=== PATIENT | female | born 1990 | race Caucasian/White ===

== ENCOUNTER → 2018-02-04 16:46 | Outpatient (CLI) | payer OTHER, SELFPAY ==
[2018-02-05 16:12] LABS: Strep Grp B PCR POS for Grp B Strep
== END ==
PROVIDERS: Visit Provider Specialist
DX: Z34.83 Encounter for supervision of other normal pregnancy, third trimester (principal); Z3A.36 36 weeks gestation of pregnancy
CPT/HCPCS: 87653

== ENCOUNTER 2018-03-05 08:03 | Inpatient (IN) | payer OTHER, SELFPAY ==
--- NOTE | 2018-03-05 10:11 | PM.OBHP.1 ---
OB HPI History of Present Illness Chief complaint: EVALUATION OF Narrative: Viv Martin is a 27 year old female who is a G2 para 1 her LMP was 06/05/2017 with an estimated due date of 03/23/2016. Initial ultrasound showed a due date of 03/03/2018. Final due date is 03/03/2018. Patient was evaluated in the office this week. She was found to be 4 cm dilated. Intact membranes. Patient presented to the Center this morning with contractions consistent. Since early this morning no leakage of fluid. On evaluation number Center she had regular contractions moderate intensity and reactive heart tones. Her cervix was 4 cm and she was sent out to walk. She returned 1 hr later with increasing contractions and further cervical change. She was admitted to the Center at that point for eminent delivery. care provided by Dr. Bautista. problem said GBS positive status. No allergies. Medications during included vitamins. Patient's past history includes headaches. Past surgical history no reported surgical history. Past allergies patient denies penicillin allergy. vitamins blood type A positive antibody screen negative hematocrit 39.3 VDRL nonreactive hepatitis-B surface antigen negative GC chlamydia negative rubella immune. Pap test within normal limits varicella immune. Glucose screen 113 ultrasound intrauterine consistent with dates. [facility] Medical History No pertinent past medical history (Inactive ~08/17/17) Surgical History History of tooth extraction (Resolved) Anesthesia (Inactive) Meds Home Medications Medication Instructions Recorded Confirmed Type fhshjapgaa-pbyhhtucfalga-ahjq 1 tab PO Q4HP PRN #30 tab 11/01/17 Rx hydrocodone-acetaminophen [[place]] 1 - 2 tab PO Q6HP PRN #20 tab 11/01/17 Rx Exam Narrative Exam Narrative: . General: Alert no apparent distress. Affect is appropriate. [place] it is uncomfortable. HEENT: Neck is supple without lymphadenopathy pupils equal round and reactive. Cardio: S1-S2 regular rate and rhythm. Respiratory: Lungs clear to auscultation. Abdomen: Gravid. Extremities: Normal deep tendon reflexes trace edema. [place]: [place]illa every 5-7 minutes irregularly heart tones: heart tones 130s to 140s category 1 tracing Assessment and Plan Plan: Plan: 27-year-old female G2 para 1 at 40 weeks gestational age in early active labor. Dilated at 4 cm on initial presentation to Labor and delivery now 5 cm. Contractions are mild to moderate. Intact membranes she GBS status is positive. Will admit her to the labor and delivery floor. Will start an IV give her penicillin per protocol. Begin with vitals per protocol. Patient would like epidural anesthesia. Will proceed with that. Had discussed with her about amniotomy. She would be interested in that as well. Will into her routine intrapartum orders. Continue to follow.
--- NOTE | 2018-03-05 10:14 | P.HPOB_ITS ---
OB HPI History of Present Illness Chief complaint: EVALUATION OF Narrative: Viv Martin is a 27 year old female who is a G2 para 1 her LMP was 06/05/2017 with an estimated due date of 03/23/2016. Initial ultrasound showed a due date of 03/03/2018. Final due date is 03/03/2018. Patient was evaluated in the office this week. She was found to be 4 cm dilated. Intact membranes. Patient presented to the Center this morning with contractions consistent. Since early this morning no leakage of fluid. On evaluation number Center she had regular contractions moderate intensity and reactive heart tones. Her cervix was 4 cm and she was sent out to walk. She returned 1 hr later with increasing contractions and further cervical change. She was admitted to the Center at that point for eminent delivery. care provided by Dr. Bautista. problem said GBS positive status. No allergies. Medications during included vitamins. Patient's past history includes headaches. Past surgical history no reported surgical history. Past allergies patient denies penicillin allergy. vitamins blood type A positive antibody screen negative hematocrit 39.3 VDRL nonreactive hepatitis-B surface antigen negative GC chlamydia negative rubella immune. Pap test within normal limits varicella immune. Glucose screen 113 ultrasound intrauterine consistent with dates. [facility] Medical History No pertinent past medical history (Inactive ~08/17/17) Surgical History History of tooth extraction (Resolved) Anesthesia (Inactive) Meds Home Medications Medication Instructions Recorded Confirmed Type dwxjlzuizy-almpmwezvwztn-ypsj 1 tab PO Q4HP PRN #30 tab 11/01/17 Rx hydrocodone-acetaminophen [[place]] 1 - 2 tab PO Q6HP PRN #20 tab 11/01/17 Rx Exam Narrative Exam Narrative: . General: Alert no apparent distress. Affect is appropriate. [place] it is uncomfortable. HEENT: Neck is supple without lymphadenopathy pupils equal round and reactive. Cardio: S1-S2 regular rate and rhythm. Respiratory: Lungs clear to auscultation. Abdomen: Gravid. Extremities: Normal deep tendon reflexes trace edema. [place]: Camilla every 5-7 minutes irregularly heart tones: heart tones 130s to 140s category 1 tracing Assessment and Plan Plan: Plan: 27-year-old female G2 para 1 at 40 weeks gestational age in early active labor. Dilated at 4 cm on initial presentation to Labor and delivery now 5 cm. Contractions are mild to moderate. Intact membranes she GBS status is positive. Will admit her to the labor and delivery floor. Will start an IV give her penicillin per protocol. Begin with vitals per protocol. Patient would like epidural anesthesia. Will proceed with that. Had discussed with her about amniotomy. She would be interested in that as well. Will into her routine intrapartum orders. Continue to follow.
[2018-03-05] MEDS: LACTATED RINGERS 1,000 ML 100 ML IV (10:40)
[2018-03-05] MEDS: PENICILLIN G POTASSIUM 5,000,000 UNIT in DEXTROSE 5% IN WATER 250 ML IV (10:40)
[2018-03-05 10:41] LABS: Add Manual Diff / Slide Review NO; Basophils Percent Auto 0.3 % (0-2); Eosinophils Percent Auto 0.3 % (2-4); Hematocrit 37.1 % (36-46); Hemoglobin 12.2 g/dL (12.0-16.0); Lymphocytes Percent Auto 17.5 % (25-40); Mean Corpuscular HGB Conc 32.8 % (30-36); Mean Corpuscular Hemoglobin 27.2 PG (26-34); Mean Corpuscular Volume 82.8 fL (80-100); Neutrophils Absolute Auto 8700 /uL (3000-5900); Neutrophils Percent Auto 73.9 % (50-75); Platelet Count 313 X10^3/uL (150-400); Red Blood Cell Count 4.48 X10^6/uL (4.0-5.2); Red Cell Distribution Width 13.4 % (11.6-14.8); White Blood Cell Count 11.8 X10^3/uL (4.5-11.0)
[2018-03-05 11:07] VITALS: BP 116/78
[2018-03-05] MEDS: LACTATED RINGERS 1,000 ML 125 ML IV (13:44)
[2018-03-05] MEDS: PENICILLIN G POTASSIUM 3,000,000 UNIT/50 ML FROZ.PIGGY 100 UNIT IV (14:35)
--- NOTE | 2018-03-05 15:02 | PM.OBPNLAB ---
Date/Time Date Patient Seen: 03/05/18 Time Patient Seen: 15:03 Pain Control Pain control: tolerating well and epidural Pelvic Exam Dilation (cm): 7 Effacement (%): 90 station: 0 Amniotic membrane status: Leaking Comments: Category 1 tracing. Evaluated at 11 o'clock 1 o'clock and now. Rupture of membranes with clear fluid amniotomy heart tones category 1. Epidural anesthesia working well. Continue with expectant management. IV antibiotics for GBS status positive given.
[2018-03-05] MEDS: OXYTOCIN 10 UNIT/ML VIAL IM (16:55)
--- NOTE | 2018-03-05 17:08 | PM.OBPRVD ---
Delivery date: 03/05/18 Intrapartal events: None Induction method: none Delivery augmentation: rupture of membranes Delivery monitor: external FHT Route of delivery: Episiotomy description: None Laceration description: None Estimated blood loss (mL): 200 Anesthesia type: Epidural Narrative: Stage I of labor approximately 6 hr. heart tones were category 1 throughout. Patient may good progression during stage I. After she received epidural she had amniotomy of clear fluid 7 cm and 0 station. she may good progression and total complete. Stage II approximately 20 min. Patient post deliver a viable male infant over intact perineum. After delivery of the head there was no nuchal cord. Delivery of body spontaneously baby was placed on mother's abdomen. Cord was then cut and transected. Baby had spontaneous cry and was vigorous. heart tones were reassuring category 1. States III. Baby and mom resting comfortably 10 min delivery of intact placenta with three-vessel cord. Inspection of the cervix and vagina shows no lacerations or tears
[2018-03-06] MEDS: IBUPROFEN 600 MG TABLET PO ×2 (04:30→10:33)
[2018-03-06 05:24] LABS: Hemoglobin 11.5 g/dL (12.0-16.0)
--- NOTE | 2018-03-06 09:01 | PM.DS.1 ---
History of Present Illness Chief complaint: EVALUATION OF Discharge Providers Date of admission: 03/05/18 08:03 Consults: 03/05/18 18:25 Consult to Consulting Nurse Routine Comment: Discharge provider: Dimas Ruiz MD Summary Discharge Diagnosis: Term intrauterine GBS positive status received penicillin prophylaxis before delivery Routine care Hospital Course: Patient admitted to the hospital in active labor. Normal labor and delivery course. Delivery of viable male without complications. mom's blood counts were stable she was eating ambulating and pain was well controlled Exam Vital Signs (past 8 hours): Oxygen Delivery Method Room Air Narrative Exam Narrative: General: Alert no apparent distress. Affect is appropriate. [place] it is uncomfortable. HEENT: Neck is supple without lymphadenopathy pupils equal round and reactive. Cardio: S1-S2 regular rate and rhythm. Respiratory: Lungs clear to auscultation. Abdomen: Uterus firm. Extremities: Normal deep tendon reflexes trace edema. Objective Labs Result Diagrams: 03/06/18 04:48 Labs: Laboratory Results - last 24 hr 03/05/18 03/05/18 03/06/18 10:10 10:10 04:48 WBC 11.8 H RBC 4.48 Hgb 12.2 11.5 L Hct 37.1 35.0 L MCV 82.8 MCH 27.2 MCHC 32.8 RDW 13.4 Plt Count 313 Neut % (Auto) 73.9 Lymph % (Auto) 17.5 L [place] % (Auto) 8.0 Eos % (Auto) 0.3 L Baso % (Auto) 0.3 Neut # (Auto) 8700 H Blood Type A Positive Antibody Screen Negative Discharge Plan Discharge Plan Patient Disposition: Home, Self-Care Discharge comment: Home and discharge follow-up with [address] Bautista. Discharge Med Rec/Prescriptions Prescriptions: New docusate sodium 250 mg Capsule 250 mg PO DAILY 30 Days RF: 0 vit,[id number] [Prenatabs Rx] 29 mg iron- 1 mg Tablet 1 tab PO DAILY Qty: 30 RF: 12 ibuprofen 600 mg Tablet 600 mg PO Q6HR PRN (Reason: Pain, Mild (1-3)) 30 Days RF: 0 Discontinued xkxbrvfvap-oyuzquuukgupw-qtas 1 EACH tablet 1 tab PO Q4HP PRN (Reason: Migraine Headache) RF: 0 Discharge Data Attending Provider: Michelle Bautista Admit Date/Time: 03/05/18 08:03
--- NOTE | 2018-03-06 09:04 | P.DS_ITS ---
History of Present Illness Chief complaint: EVALUATION OF Discharge Providers Date of admission: 03/05/18 08:03 Consults: 03/05/18 18:25 Consult to Dispatch Specialist Routine Comment: Discharge provider: Dimas Ruiz MD Summary Discharge Diagnosis: Term intrauterine GBS positive status received penicillin prophylaxis before delivery Routine care Hospital Course: Patient admitted to the hospital in active labor. Normal labor and delivery course. Delivery of viable male without complications. mom's blood counts were stable she was eating ambulating and pain was well controlled Exam Vital Signs (past 8 hours): Oxygen Delivery Method Room Air Narrative Exam Narrative: General: Alert no apparent distress. Affect is appropriate. [place] it is uncomfortable. HEENT: Neck is supple without lymphadenopathy pupils equal round and reactive. Cardio: S1-S2 regular rate and rhythm. Respiratory: Lungs clear to auscultation. Abdomen: Uterus firm. Extremities: Normal deep tendon reflexes trace edema. Objective Labs Result Diagrams: 03/06/18 04:48 Labs: Laboratory Results - last 24 hr 03/05/18 03/05/18 03/06/18 10:10 10:10 04:48 WBC 11.8 H RBC 4.48 Hgb 12.2 11.5 L Hct 37.1 35.0 L MCV 82.8 MCH 27.2 MCHC 32.8 RDW 13.4 Plt Count 313 Neut % (Auto) 73.9 Lymph % (Auto) 17.5 L [place] % (Auto) 8.0 Eos % (Auto) 0.3 L Baso % (Auto) 0.3 Neut # (Auto) 8700 H Blood Type A Positive Antibody Screen Negative Discharge Plan Discharge Plan Patient Disposition: Home, Self-Care Discharge comment: Home and discharge follow-up with [address] Bautista. Discharge Med Rec/Prescriptions Prescriptions: New docusate sodium 250 mg Capsule 250 mg PO DAILY 30 Days RF: 0 vit,[id number] [Prenatabs Rx] 29 mg iron- 1 mg Tablet 1 tab PO DAILY Qty: 30 RF: 12 ibuprofen 600 mg Tablet 600 mg PO Q6HR PRN (Reason: Pain, Mild (1-3)) 30 Days RF: 0 Discontinued zlwhfpiaac-ptyxxumcvbiad-wgnz 1 EACH tablet 1 tab PO Q4HP PRN (Reason: Migraine Headache) RF: 0 Discharge Data Attending Provider: Michelle Bautista Admit Date/Time: 03/05/18 08:03
[2018-03-06 09:40] VITALS: BP 116/80; PULSE 109; RESP 16; TEMP 36.6
[2018-03-06] MEDS: PRENATAL VIT,CALC/IRON/FOLIC 1 TABLET 1 TAB PO (10:33)
[2018-03-06] MEDS: DOCUSATE 250 MG CAPSULE PO (10:33)
== END 2018-03-06 11:59 | disposition home or self-care (01) | DRG 775 ==
PROVIDERS: Family Medicine; Admitting Provider Specialist; Visit Provider Specialist
DX: O99.824 Streptococcus B carrier state complicating childbirth (principal); Z3A.40 40 weeks gestation of pregnancy; Z37.0 Single live birth
CPT/HCPCS: 01967; 36415; 59050; 59400; 59409; 85014; 85018; 85025; 86850; 86900; 86901; G0379; J2540; J2590

== ENCOUNTER → 2019-07-21 07:07 | Outpatient (CLI) | payer BC, SELFPAY ==
--- NOTE | 2019-07-21 07:11 | DI.US.S_ITS ---
PROCEDURE: US OB >= 14 WEEKS FETUS INDICATIONS: ANATOMIC SURVEY OUTSIDE/PRIOR DATING DATA: Last menstrual period (LMP): 01/24/19. LMP-based estimated date of delivery (JUAN CARLOS): 10/31/19. First dating scan (date and location): 07/21/19, this study. Estimated date of delivery (JUAN CARLOS) from first dating scan: 10/28/19. TECHNIQUE: Real-time scanning was performed of the fetus, with image documentation and biometric measurements. COMPARISON: [facility], , OB >= 14 WEEKS FETUS, 12/10/2017, 11:59. FINDINGS: General: A single living intrauterine gestation is present. Presentation: Vertex. Placenta: Placental position is posterior, with marginal previa (approaching within 2 cm of the internal os of the cervical canal). Amniotic fluid index: 16.2 cm, normal range is 5-24 cm. heart rate: 150 beats per minute. Maternal cervical canal: 3.4 cm long. Normal lower limit is 2.5 cm. biometrics: Biparietal diameter: 6.1 cm, 24 weeks 5 days Head circumference: 23.7 cm, 25 weeks 5 days Abdominal circumference: 22.3 cm, 26 weeks 5 days Femur length: 4.9 cm, 26 weeks 2 days Estimated gestational age from initial scan: Not applicable Composite gestational age from present scan: 25 weeks 6 days Estimated weight and percentile: 927 g, 80th percentile Measurement variability for biometric dating: +/- 7 days from 14 weeks to 15 weeks 6 days gestation, +/- 10 days from 16 weeks to 21 weeks 6 days gestation, +/- 2 weeks from 22 weeks to 27 weeks 6 days gestation, +/- 3 weeks for 28 weeks gestation or later. weight reference: 4500 g or EFW >90/95% is considered macrosomia or large for gestational age. EFW <10% is small for gestational age. EFW 5% or less is considered intra-uterine growth restriction. Anatomic survey: Neuro: Ventricles are non-dilated at less than 10 mm. Cisterna magna is normal at 3-11 mm. Cerebellum is normal in size and morphology. Nuchal skin fold: Normal at less than 6 mm between 14-21 weeks gestational age. Face: Nose and lips, facial profile are normal. Spine: No evidence for spina bifida. Heart: 4-chambered heart is present, with normal ventricular outflow tracts. Diaphragm: Diaphragm is intact. Stomach: Left-sided stomach is present. Kidneys: No hydronephrosis. Normal is less than 5 mm in 2nd trimester, less than 7 mm in 3rd trimester. Cord: 3-vessel cord has orthotopic insertion. Bladder: Normal in size. Extremities: All 4 extremities identified. IMPRESSION: Appropriate interval growth from LMP data. No anomaly seen. Note is made of a marginal placenta at the posterior cervical os. Dictated by: Brice Ta M.D. on 07/21/2019 at 15:58 Approved by: Brice Ta M.D. on 07/21/2019 at 16:06
== END ==
PROVIDERS: Visit Provider Family Medicine
DX: Z36.89 Encounter for other specified antenatal screening (principal); Z34.82 Encounter for supervision of other normal pregnancy, second trimester; Z3A.25 25 weeks gestation of pregnancy
CPT/HCPCS: 36415; 76811; 80055; 81003; 86787; 86803; 86850; 86900; 86901; 87077; 87086; 87147; 87389

== ENCOUNTER → 2019-07-21 08:02 | Outpatient (CLI) | payer OTHER, BC, SELFPAY ==
[2019-07-21 08:35] LABS: Add Manual Diff / Slide Review NO; Basophils Absolute Auto 0 /uL (0-100); Basophils Percent Auto 0.5 % (0-2); Eosinophils Absolute Auto 100 /uL (0-450); Eosinophils Percent Auto 1.3 % (2-4); Hematocrit 34.3 % (36-46); Hemoglobin 11.8 g/dL (12.0-16.0); Lymphocytes Absolute Auto 2400 /uL (1100-4500); Lymphocytes Percent Auto 26.2 % (25-40); Mean Corpuscular HGB Conc 34.3 % (30-36); Mean Corpuscular Hemoglobin 30.8 PG (26-34); Mean Corpuscular Volume 89.8 fL (80-100); Monocytes Absolute Auto 900 /uL (0-900); Monocytes Percent Auto 9.5 % (3-14); Neutrophils Absolute Auto 5600 /uL (1500-7000); Neutrophils Percent Auto 62.5 % (50-75); Platelet Count 287 X10^3/uL (150-400); Red Blood Cell Count 3.82 X10^6/uL (4.0-5.2); Red Cell Distribution Width 12.2 % (11.6-14.8)
[2019-07-21 08:46] LABS: Appearance Urine UA CLEAR; Bilirubin Urine UA NEGATIVE (NEGATIVE); Color Urine UA YELLOW; Glucose Urine UA NEGATIVE (Negative); Ketones Urine UA NEGATIVE (NEGATIVE); Leukocyte Esterase Urine UA NEGATIVE (NEGATIVE); Nitrite Urine UA NEGATIVE (Negative); Occult Blood Urine UA NEGATIVE (Negative); Protein Urine UA NEGATIVE (Negative); Specific Gravity Urine UA <=1.005 (1.000-1.035); Urobilinogen Urine UA 0.2 E.U./dL (0.2)
[2019-07-21 08:47] LABS: pH Urine UA 6.5 (4.5-8.0)
[2019-07-21 19:05] LABS: HIV 1 & 2 Ab/Ag 4th Gen Combo NEGATIVE (NEGATIVE); Hep C Virus Ab w/Reflex Quant NEGATIVE s/c (NEGATIVE); Hepatitis B Surface Antigen NEGATIVE s/c (NEGATIVE); Rubella Antibody IgG 28.3 IU/mL (>15)
[2019-07-23 15:56] LABS: RPR Screen Nonreactive (Nonreactive)
== END ==
PROVIDERS: PCP Family Medicine; Visit Provider Family Medicine
DX: Z34.82 Encounter for supervision of other normal pregnancy, second trimester (principal)
CPT/HCPCS: 36415; 80055; 81003; 86787; 86803; 86850; 86900; 86901; 87086; 87389

== ENCOUNTER → 2019-08-12 15:04 | Outpatient (CLI) | payer BC, SELFPAY ==
--- NOTE | 2019-08-12 15:05 | DI.US.S_ITS ---
PROCEDURE: US OB LIMITED INDICATIONS: R/O PLACENTA ABRUPTION OUTSIDE/PRIOR DATING DATA: Last menstrual period (LMP): 01/24/2019. LMP-based estimated date of delivery (JUAN CARLOS): 10/31/2019. First dating scan (date and location): 07/21/2019 at . Estimated date of delivery (JUAN CARLOS) from first dating scan: 10/28/2019. TECHNIQUE: Real-time scanning was performed of the fetus, with image documentation and biometric measurements. Biophysical profile was also obtained. Endovaginal scanning: Yes COMPARISON: [facility], , OB >= 14 WEEKS FETUS, 07/21/2019, 7:30. FINDINGS: General: A single living intrauterine gestation is present. Presentation: Vertex. Placenta: Placental position is posterior, there is complete previa. No placenta abruption. Amniotic fluid index: 16.2 cm, normal range is 5-24 cm. heart rate: 136 beats per minute. Maternal cervical canal: 3.3 cm long. Normal lower limit is 2.5 cm. biometrics: Estimated gestational age from initial scan: 29 weeks 0 day. Composite gestational age from present scan: n.a. Measurement variability for biometric dating: +/- 7 days from 14 weeks to 15 weeks 6 days gestation, +/- 10 days from 16 weeks to 21 weeks 6 days gestation, +/- 2 weeks from 22 weeks to 27 weeks 6 days gestation, +/- 3 weeks for 28 weeks gestation or later. weight reference: 4500 g or EFW >90/95% is considered macrosomia or large for gestational age. EFW <10% is small for gestational age. EFW 5% or less is considered intra-uterine growth restriction. IMPRESSION: 1. A single living intrauterine gestation with the estimated gestational age 29 weeks 0 day based on initial ultrasound. 2. Placenta previa. No findings to suggest placental abruption. Dictated by: Sreedhar Tinoco M.D. on 08/12/2019 at 17:39 Approved by: Sreedhar Tinoco M.D. on 08/12/2019 at 17:44
== END ==
PROVIDERS: PCP Family Medicine; Visit Provider Family Medicine
DX: Z36.89 Encounter for other specified antenatal screening (principal); O44.03 Complete placenta previa NOS or without hemorrhage, third trimester; Z3A.29 29 weeks gestation of pregnancy
CPT/HCPCS: 76815; 76830

== ENCOUNTER → 2020-10-29 16:58 | Outpatient (CLI) | payer BC, OTHER, SELFPAY ==
[2020-10-29 18:20] LABS: Appearance Urine UA CLEAR; Bilirubin Urine UA NEGATIVE (NEGATIVE); Color Urine UA YELLOW; Glucose Urine UA NEGATIVE (Negative); Ketones Urine UA NEGATIVE (NEGATIVE); Leukocyte Esterase Urine UA NEGATIVE (NEGATIVE); Nitrite Urine UA NEGATIVE (Negative); Occult Blood Urine UA NEGATIVE (Negative); Protein Urine UA NEGATIVE (Negative); Urobilinogen Urine UA 0.2 E.U./dL (0.2)
[2020-10-29 18:21] LABS: Add Manual Diff / Slide Review NO; Basophils Absolute Auto 0 /uL (0-100); Basophils Percent Auto 0.3 % (0-2); Eosinophils Absolute Auto 100 /uL (0-450); Eosinophils Percent Auto 0.7 % (2-4); Hematocrit 36.8 % (36-46); Hemoglobin 12.5 g/dL (12.0-16.0); Lymphocytes Absolute Auto 1700 /uL (1100-4500); Lymphocytes Percent Auto 21.8 % (25-40); Mean Corpuscular HGB Conc 33.9 % (30-36); Mean Corpuscular Hemoglobin 30.7 PG (26-34); Mean Corpuscular Volume 90.7 fL (80-100); Monocytes Absolute Auto 600 /uL (0-900); Monocytes Percent Auto 7.5 % (3-14); Neutrophils Absolute Auto 5600 /uL (1500-7000); Neutrophils Percent Auto 69.7 % (50-75); Platelet Count 255 X10^3/uL (150-400); Red Blood Cell Count 4.06 X10^6/uL (4.0-5.2); Red Cell Distribution Width 13.4 % (11.6-14.8)
[2020-10-30 05:41] LABS: RPR Screen Non Reactive (Non Reactive)
[2020-10-30 06:37] LABS: Varicella IgG Antibody 2577 index (Immune >165)
[2020-10-31 04:22] LABS: Chlamydia trachomatis NAA Negative (Negative); Neisseria gonorrhoeae NAA Negative (Negative)
[2020-11-01 16:54] LABS: Hepatitis B Surface Antigen NEGATIVE s/c (NEGATIVE); Rubella Antibody IgG 23.8 IU/mL (>15)
[2020-11-01 16:57] LABS: HIV 1 & 2 Ab/Ag 4th Gen Combo NEGATIVE (NEGATIVE); Hep C Virus Ab w/Reflex Quant NEGATIVE s/c (NEGATIVE)
== END ==
PROVIDERS: Referring Provider Family Medicine; Visit Provider Family Medicine
DX: Z34.81 Encounter for supervision of other normal pregnancy, first trimester (principal)
CPT/HCPCS: 36415; 80055; 81003; 86787; 86803; 86850; 86900; 86901; 87077; 87086; 87147; 87389; 87491; 87591

== ENCOUNTER → 2020-11-22 15:39 | Outpatient (CLI) | payer OTHER, MEDICAID, SELFPAY ==
--- NOTE | 2020-11-22 15:41 | DI.US.S_ITS ---
PROCEDURE: US OB >= 14 WEEKS FETUS INDICATIONS: anatomic survey OUTSIDE/PRIOR DATING DATA: Last menstrual period (LMP): 07/05/20 . LMP-based estimated date of delivery (JUAN CARLOS): 04/21/21 . First dating scan (date and location): 11/22/20 . Estimated date of delivery (JUAN CARLOS) from first dating scan: 04/10/21 . TECHNIQUE: Real-time scanning was performed of the fetus, with image documentation and biometric measurements. Endovaginal scanning: Not needed COMPARISON: [facility], OB >= 14 WEEKS FETUS, 07/21/2019, 7:30. [facility], OB >= 14 WEEKS FETUS, 12/10/2017, 11:59. FINDINGS: General: A single living intrauterine gestation is present. Presentation: Vertex. Placenta: Placental position is posterior , without previa. Amniotic fluid index: 11.6 cm, normal range is 5-24 cm. heart rate: 149 beats per minute. Maternal cervical canal: 4.3 cm long. Normal lower limit is 2.5 cm. biometrics: Biparietal diameter: 4.7 cm, 20 weeks 1 day Head circumference: 17.5 cm, 20 weeks 0 days Abdominal circumference: 14.9 cm, 20 weeks 1 day Femur length: 3.3 cm, 20 weeks 1 day Estimated gestational age from initial scan: 20 weeks 1 day Composite gestational age from present scan: 20 weeks 1 day Estimated weight and percentile: 333 g, 50 second percentile. Measurement variability for biometric dating: +/- 7 days from 14 weeks to 15 weeks 6 days gestation, +/- 10 days from 16 weeks to 21 weeks 6 days gestation, +/- 2 weeks from 22 weeks to 27 weeks 6 days gestation, +/- 3 weeks for 28 weeks gestation or later. weight reference: 4500 g or EFW >90/95% is considered macrosomia or large for gestational age. EFW <10% is small for gestational age. EFW 5% or less is considered intra-uterine growth restriction. Anatomic survey: Neuro: Ventricles are non-dilated at less than 10 mm. Cisterna magna is normal at 3-11 mm. Cerebellum is normal in size and morphology. Nuchal skin fold: Normal at less than 6 mm between 14-21 weeks gestational age. Face: Nose and lips, facial profile are not well seen due to positioning. Spine: No evidence for spina bifida. Heart: 4-chambered heart is present, with normal ventricular outflow tracts. Diaphragm: Diaphragm is intact. Stomach: Left-sided stomach is present. Kidneys: No hydronephrosis. Normal is less than 5 mm in 2nd trimester, less than 7 mm in 3rd trimester. Cord: 3-vessel cord has orthotopic insertion. Bladder: Normal in size. Extremities: All 4 extremities identified. IMPRESSION: Appropriate interval growth, no anomaly seen. However, the facial area is relatively poorly seen due to positioning and follow-up in 7-10 days is recommended to attempt completion of the anatomic survey. Dictated by: Brice Ta M.D. on 11/23/2020 at 10:00 Approved by: Brice Ta M.D. on 11/23/2020 at 10:02
== END ==
PROVIDERS: PCP Family Medicine; Referring Provider Family Medicine; Visit Provider Family Medicine
DX: Z34.82 Encounter for supervision of other normal pregnancy, second trimester (principal); Z3A.20 20 weeks gestation of pregnancy
CPT/HCPCS: 76811

== ENCOUNTER → 2021-01-20 15:21 | Outpatient (CLI) | payer OTHER, MEDICAID, SELFPAY ==
[2021-01-20 17:58] LABS: Hematocrit 33.7 % (36-46); Hemoglobin 11.4 g/dL (12.0-16.0)
[2021-01-20 18:10] LABS: GTT (PREG) 1 Hour PP 50gm Dose 133 mg/dL (76-139)
== END ==
PROVIDERS: PCP Family Medicine; Referring Provider Family Medicine; Visit Provider Family Medicine
DX: Z34.90 Encounter for supervision of normal pregnancy, unspecified, unspecified trimester (principal); Z3A.28 28 weeks gestation of pregnancy
CPT/HCPCS: 36415; 82950; 85014; 85018

== ENCOUNTER → 2021-03-18 14:28 | Outpatient (CLI) | payer OTHER, MEDICAID, SELFPAY ==
[2021-03-19 13:08] LABS: Strep Grp B PCR POS for Grp B Strep
== END ==
PROVIDERS: PCP Family Medicine; Visit Provider Family Medicine
DX: Z34.83 Encounter for supervision of other normal pregnancy, third trimester (principal); Z3A.36 36 weeks gestation of pregnancy
CPT/HCPCS: 87653